=== PATIENT | male | born 1965 | race Caucasian/White ===

== ENCOUNTER 2019-09-14 22:23 | Emergency (ER) | payer OTHER, BC ==
[~2019-09-14] VITALS: Ht 170.2 cm; Wt 149.7 kg
[2019-09-14 22:25] VITALS: BP 177/100
--- NOTE | 2019-09-14 22:30 | NUR ---
PT AMBULATED TO LOBBY WITH STEADY GAIT
--- NOTE | 2019-09-14 22:38 | NUR ---
Patient amb to bed 4
--- NOTE | 2019-09-14 22:38 | NUR ---
PATIENT 54 Y/O MALE C/O SOB X 1 HR, STATES DIFFICULTY WITH EXHALATION. PER PATIENT, "I HAD A HARD TIME BREATHING AT HOME.I HAD A COLD; I MOSTLY FEEL IT IN MY CHEST. I'VE HAD THIS DRY COUGH AND HAVE BEEN SICK SINCE SUNDAY, AND IT'S MAKING IT HARDER TO BREATHE AND GET AIR OUT". NO PAIN AT THIS TIME. DENIES N/V/D/FEVER/CHILLS; DENIES CHEST PAIN. DENIES SMOKING. LUNG SOUNDS BILATERAL EXPIRATORY WHEEZING THROUGHOUT. CHEST IS SYMMETRICAL AND UNLABORED. 97% ON RA; 18 RR. ERMD MADE AWARE OF STATUS. SIDE RAILSX1. PLACED ON MONITOR. WILL CONTINUE TO MONITOR. PMH: DENIES RX:DENIES NKDA
[2019-09-14] MEDS ORDERED: ALBUTEROL 0.083% 2.5 MG/3 ML NEBU INH ONE (22:50)
[2019-09-14] MEDS ORDERED: predniSONE 20 MG TAB PO ONE (22:50)
[2019-09-14] MEDS ORDERED: ALBUTEROL SULFATE/IPRATROPIU 3 ML SOL IH ONE (22:50)
--- NOTE | 2019-09-14 22:56 | NUR ---
RT. AT BEDSIDE FOR TREATMENT.
--- NOTE | 2019-09-14 23:10 | NUR ---
X-Ray at bedside.
--- NOTE | 2019-09-15 01:00 | NUR ---
PATIENT SITTING QUIETLY AT THE EDGE OF BED. SPO2 AT 95% ON RA. WILL CONTINUE TO MONITOR.
--- NOTE | 2019-09-15 01:03 | NUR ---
PATIENT AMBULATED TO RESTROOM.
--- NOTE | 2019-09-15 01:17 | NUR ---
Dr. Sharp examining patient.
[2019-09-15 01:32] VITALS: BP 135/73
--- NOTE | 2019-09-15 01:32 | NUR ---
PT DISCHARGED WITH PAPERWORK. EDUCATED PT REGARDING MEDICATIONS AND D/C INSTRUCTIONS. PT VERBALIZED UNDERSTANDING OF TEACHING. TOLD PT TO FOLLOW UP WITH PCP AND WHEN TO RETURN TO ED. PT AT STABLE CONDITION. NO SOB/DIFFICULTY BREATHING. ALL QUESTIONS ANSWERED.
--- NOTE | 2019-09-15 01:37 | NUR ---
called pt and left voicemail informing them they left information that includes prescription
== END 2019-09-15 01:32 | disposition home or self-care (01) ==
LOC: MED 22:23
DX: R05 Cough (principal); R06.02 Shortness of breath; R06.2 Wheezing; R53.83 Other fatigue
CPT/HCPCS: 71045; 94640; 99283; J7512; J7613; J7620; Q0092